=== PATIENT | male | born 1945 | race African-American/Black ===

== ENCOUNTER 2017-03-02 12:49 | Inpatient (IN) ==
[2017-03-02 14:48] LABS: Basophils % 0.3 % (0.0-0.8); Eosinophils # 0.1 10*3/uL (0.0-0.87); Eosinophils % 0.7 % (0.00-10.9); Hematocrit 48.8 VOL% (42.0-52.0); Hemoglobin 16.5 GM/DL (14.0-18.0); Immature Granulocytes % 0.3 %; Immature Granulocytes Absolute 0.02 #; Lymphocytes # 1.5 10*3/uL (1.4-4.0); Lymphocytes % 21.5 % (21.2-54.2); Mean Corpuscular HGB Conc 33.8 GM/DL (32-36); Mean Corpuscular Hemoglobin 32 PG (27-34); Mean Corpuscular Volume 93.3 FL (87-102); Mean Platelet Volume 10.7 FL (9.6-12.0); Monocytes # 0.6 10*3/uL (0.11-0.8); Monocytes % 8.4 % (1.7-12.7); Neutrophils # 4.9 10*3/uL (1.4-7.4); Neutrophils % 68.8 % (38.7-73.9); Platelet Count 166 T/CUMM (130-400); Red Blood Count 5.23 MC/CUMM (3.8-5.5); Red Cell Distribution Width 11.9 % (9.3-17.3); White Blood Count 7.1 T/CUMM (4-12)
[2017-03-02 14:56] LABS: PT Patient Result 10.8 SECS; Partial Thromboplastin Time 24.5 SECS (0-40)
[2017-03-02 15:26] LABS: Alanine Aminotransferase 45 U/L (16-61); Albumin 4.1 G/DL (3.4-5.0); Alkaline Phosphatase 85 U/L (45-117); Aspartate Amino Transferase 33 U/L (0-37); Blood Urea Nitrogen 11 MG/DL (7-18); Calcium 9.3 MG/DL (8.5-10.1); Glucose 109 MG/DL (74-106); Osmolality,Calculated 274.7 MOS/KG (273-304); Potassium 4.2 MMOL/L (3.5-5.1); Sodium 138 MMOL/L (136-145); Total Protein 7.8 G/DL (6.4-8.3)
[2017-03-02 15:27] LABS: Troponin I Only 0.217 NG/ML (0.00-0.045)
[2017-03-02] MEDS ORDERED: ENOXAPARIN 100 MG/ML SYRINGE SUBCUT STA (15:51)
[2017-03-02] MEDS ORDERED: ASPIRIN 325 MG TABLET PO STA (15:51)
[2017-03-02] MEDS ORDERED: ENOXAPARIN 100 MG/ML SYRINGE SUBCUT ONE (15:59)
[2017-03-02] MEDS ORDERED: ASPIRIN 325 MG TABLET ONE (15:59)
[2017-03-02] MEDS ORDERED: ACETAMINOPHEN 325 MG TABLET PO PRN (17:23)
[2017-03-02] MEDS ORDERED: LACTULOSE 20 GM/30 ML UDCUP PO PRN (17:23)
[2017-03-02] MEDS ORDERED: ONDANSETRON 4 MG/2 ML VIAL IV PRN (17:23)
[2017-03-02] MEDS ORDERED: DOCUSATE SODIUM 100 MG CAPSULE PO PRN (17:23)
[2017-03-02] MEDS ORDERED: MORPHINE 2 MG/1 ML SYRINGE IV PRN (17:23)
[2017-03-02 18:21] LABS: Magnesium 2.1 MG/DL (1.8-2.4); Thyroid Stimulating Hormone 2.04 uIU/ml (0.358-3.74)
[2017-03-02] MEDS: prednisoLONE ACETATE 1% OPH SUSP 5 ML BOTTLE BOTH EYES SCH (20:49)
[2017-03-02] MEDS: SODIUM CHLORIDE 0.9% 1,000 ML IV SCH (21:34)
[2017-03-02] MEDS ORDERED: NITROGLYCERIN SL 0.4 MG TABLET SL PRN (22:42)
[2017-03-03] MEDS ORDERED: ENOXAPARIN 100 MG/ML SYRINGE SUBCUT SCH (03:00)
[2017-03-03 04:02] LABS: Basophils % 0.4 % (0.0-0.8); Eosinophils # 0.1 10*3/uL (0.0-0.87); Eosinophils % 1.2 % (0.00-10.9); Hematocrit 44.2 VOL% (42.0-52.0); Hemoglobin 14.8 GM/DL (14.0-18.0); Immature Granulocytes % 0.3 %; Immature Granulocytes Absolute 0.02 #; Lymphocytes # 3.4 10*3/uL (1.4-4.0); Lymphocytes % 49.5 % (21.2-54.2); Mean Corpuscular HGB Conc 33.5 GM/DL (32-36); Mean Corpuscular Hemoglobin 31 PG (27-34); Mean Corpuscular Volume 92.7 FL (87-102); Mean Platelet Volume 10.7 FL (9.6-12.0); Monocytes # 0.6 10*3/uL (0.11-0.8); Monocytes % 9.2 % (1.7-12.7); Neutrophils # 2.7 10*3/uL (1.4-7.4); Neutrophils % 39.4 % (38.7-73.9); Platelet Count 169 T/CUMM (130-400); Red Blood Count 4.77 MC/CUMM (3.8-5.5); Red Cell Distribution Width 11.9 % (9.3-17.3); White Blood Count 6.9 T/CUMM (4-12)
[2017-03-03 04:45] LABS: Osmolality,Calculated 275.5 MOS/KG (273-304); Potassium 3.8 MMOL/L (3.5-5.1); Risk Ratio 6.48; VLDL CHOLESTEROL 30.8 MG/DL
[2017-03-03] MEDS: SODIUM CHLORIDE 0.9% 1,000 ML IV SCH (05:12)
[2017-03-03] MEDS ORDERED: CHLORTHALIDONE 25 MG TABLET PO SCH (09:00)
[2017-03-03] MEDS ORDERED: LISINOPRIL 20 MG TABLET PO SCH (09:00)
[2017-03-03] MEDS ORDERED: ROSUVASTATIN 20 MG TABLET PO ONE (09:03)
[2017-03-03] MEDS ORDERED: ZALEPLON 5 MG CAPSULE PO PRN (09:11)
[2017-03-03] MEDS ORDERED: DIAZEPAM 5 MG TABLET PO ONE (09:14)
[2017-03-03] MEDS ORDERED: MAGNESIUM SULF RIDER 2 GM in PREMIX 1 EACH IV PRN (09:14)
[2017-03-03] MEDS ORDERED: POTASSIUM CHLORIDE RIDER 10 MEQ in PREMIX 1 EACH IV PRN (09:14)
[2017-03-03] MEDS ORDERED: diphenhydrAMINE CAP 25 MG CAPSULE PO ONE (09:14)
[2017-03-03 09:58] LABS: Risk Ratio 6.45
[2017-03-03] MEDS: PANTOPRAZOLE 40 MG TABLET PO SCH (10:34)
[2017-03-03] MEDS: SPIRONOLACTONE 25 MG TABLET PO SCH (10:34)
[2017-03-03] MEDS ORDERED: ASPIRIN 325 MG TABLET PO ONE (10:35)
[2017-03-03] MEDS: prednisoLONE ACETATE 1% OPH SUSP 5 ML BOTTLE BOTH EYES SCH ×3 (10:35→21:06)
[2017-03-03] MEDS: ALLOPURINOL 100 MG TABLET PO SCH (10:35)
[2017-03-03] MEDS: ASPIRIN EC 81 MG TABLET PO SCH (10:35)
[2017-03-03] MEDS ORDERED: MEPERIDINE 25 MG/1 ML VIAL ONE (12:03)
[2017-03-03] MEDS ORDERED: LIDOCAINE 1% 20 ML VIAL ONE ×2 (12:03→12:07)
[2017-03-03] MEDS ORDERED: MIDAZOLAM 2 MG/2 ML VIAL ONE (12:03)
[2017-03-03] MEDS ORDERED: HEPARIN 5,000 UNIT/1 ML VIAL ONE (12:47)
[2017-03-03] MEDS ORDERED: EPTIFIBATIDE 20,000 MCG/10 ML VIAL ONE ×2 (12:48→13:00)
[2017-03-03] MEDS ORDERED: EPTIFIBATIDE 75 MG/100 ML BOTTLE IV ONE (12:49)
[2017-03-03] MEDS ORDERED: EPTIFIBATIDE 75 MG/100 ML BOTTLE IV SCH (12:59)
[2017-03-03] MEDS ORDERED: TICAGRELOR 90 MG TABLET ONE (13:43)
[2017-03-03 15:28] LABS: CKMB % 1.9 %
[2017-03-03 15:29] LABS: Troponin I Only 3.08 NG/ML (0.00-0.045)
[2017-03-03] MEDS: CARVEDILOL 3.125 MG TABLET PO SCH ×2 (15:58→21:06)
[2017-03-03] MEDS: BENZONATATE 100 MG CAPSULE PO SCH ×2 (16:01→21:06)
[2017-03-03] MEDS: FUROSEMIDE 20 MG TABLET PO SCH (16:04)
[2017-03-03] MEDS ORDERED: ROSUVASTATIN 20 MG TABLET PO SCH (21:00)
[2017-03-03] MEDS: TICAGRELOR 90 MG TABLET PO SCH (21:06)
[2017-03-04 00:48] LABS: CKMB % 1.4 %
[2017-03-04 00:51] LABS: Troponin I Only 1.94 NG/ML (0.00-0.045)
[2017-03-04 05:34] LABS: Basophils % 0.2 % (0.0-0.8); Eosinophils # 0.1 10*3/uL (0.0-0.87); Eosinophils % 1.2 % (0.00-10.9); Hematocrit 42.9 VOL% (42.0-52.0); Hemoglobin 14.4 GM/DL (14.0-18.0); Immature Granulocytes % 0.2 %; Immature Granulocytes Absolute 0.02 #; Lymphocytes # 2.5 10*3/uL (1.4-4.0); Lymphocytes % 31.4 % (21.2-54.2); Mean Corpuscular HGB Conc 33.6 GM/DL (32-36); Mean Corpuscular Hemoglobin 31 PG (27-34); Mean Corpuscular Volume 92.9 FL (87-102); Mean Platelet Volume 10.8 FL (9.6-12.0); Monocytes # 0.9 10*3/uL (0.11-0.8); Monocytes % 11.3 % (1.7-12.7); Neutrophils # 4.5 10*3/uL (1.4-7.4); Neutrophils % 55.7 % (38.7-73.9); Platelet Count 170 T/CUMM (130-400); Red Blood Count 4.62 MC/CUMM (3.8-5.5); Red Cell Distribution Width 12.2 % (9.3-17.3); White Blood Count 8.1 T/CUMM (4-12)
[2017-03-04 05:51] LABS: Osmolality,Calculated 280.3 MOS/KG (273-304); Potassium 3.7 MMOL/L (3.5-5.1)
[2017-03-04] MEDS ORDERED: LOSARTAN 25 MG TABLET PO SCH (09:00)
[2017-03-04] MEDS ORDERED: LISINOPRIL 2.5 MG TABLET PO SCH (09:00)
[2017-03-04] MEDS: PANTOPRAZOLE 40 MG TABLET PO SCH (09:20)
[2017-03-04] MEDS: TICAGRELOR 90 MG TABLET PO SCH (09:20)
[2017-03-04] MEDS: ALLOPURINOL 100 MG TABLET PO SCH (09:20)
[2017-03-04] MEDS: ASPIRIN EC 81 MG TABLET PO SCH (09:20)
[2017-03-04] MEDS: FUROSEMIDE 20 MG TABLET PO SCH (09:21)
[2017-03-04] MEDS: BENZONATATE 100 MG CAPSULE PO SCH (09:21)
[2017-03-04] MEDS: SPIRONOLACTONE 25 MG TABLET PO SCH (09:21)
[2017-03-04] MEDS: CARVEDILOL 3.125 MG TABLET PO SCH (09:21)
[2017-03-04] MEDS: prednisoLONE ACETATE 1% OPH SUSP 5 ML BOTTLE BOTH EYES SCH (09:21)
[2017-03-04 11:49] VITALS: BP 118/91
== END 2017-03-04 13:33 | disposition home or self-care (01) | DRG 247 ==
LOC: N.ED 12:49 → N.EDINP 12:49 → N.TELEN 19:07 → SUATTDRO 03-03 14:10
PROVIDERS: ADMIT Internal Medicine; ATTEND Hospitalist
PROC: CLCCHCL (ICD-10-PCS; 2017-03-03 12:15)

== ENCOUNTER 2020-02-01 15:49 | Inpatient (IN) ==
[2020-02-01 17:41] LABS: Basophils % 0.6 % (0.0-0.8); Eosinophils # 0.2 10*3/uL (0.0-0.87); Eosinophils % 3.2 % (0.00-10.9); Hematocrit 45.4 VOL% (42.0-52.0); Hemoglobin 14.5 GM/DL (14.0-18.0); Immature Granulocytes % 0.3 %; Immature Granulocytes Absolute 0.02 #; Lymphocytes # 2.6 10*3/uL (1.4-4.0); Mean Corpuscular HGB Conc 31.9 GM/DL (32-36); Mean Platelet Volume 9.9 FL (9.6-12.0); Monocytes % 10.8 % (1.7-12.7); Neutrophils % 47.1 % (38.7-73.9); Platelet Count 242 T/CUMM (130-400); Red Blood Count 4.73 MC/CUMM (3.8-5.5); Red Cell Distribution Width 12.4 % (9.3-17.3); White Blood Count 6.9 T/CUMM (4-12)
[2020-02-01 17:54] LABS: Albumin 3.2 G/DL (3.4-5.0); Bilirubin,Total 0.4 MG/DL (0.2-1.0); Calcium 9.5 MG/DL (8.5-10.1); Osmolality,Calculated 275.7 MOS/KG (273-304); Total Protein 7.4 G/DL (6.4-8.3)
[2020-02-01 19:09] LABS: Eosinophils 2 % (0-10); Lymphocytes 40 % (20-55); Macrocytosis 1+; Segmented Neutrophils 46 % (50-85); Total Cells Counted 100
[2020-02-01 19:11] LABS: Platelet Estimate Increased; Reactive Lymphocytes 2+
[2020-02-01] MEDS ORDERED: FUROSEMIDE 40 MG/4 ML VIAL IV STA (19:36)
[2020-02-01] MEDS ORDERED: GLUCAGON 1 MG VIAL IM PRN (20:10)
[2020-02-01] MEDS ORDERED: ACETAMINOPHEN 325 MG TABLET PO PRN (20:10)
[2020-02-01] MEDS ORDERED: DEXTROSE 50% 25 GM/50 ML VIAL IV PRN (20:10)
[2020-02-01] MEDS ORDERED: DOCUSATE SODIUM 100 MG CAPSULE PO PRN (20:10)
[2020-02-01] MEDS ORDERED: ONDANSETRON 4 MG/2 ML VIAL IV PRN (20:10)
[2020-02-01] MEDS ORDERED: carvediloL 3.125 MG TABLET PO SCH (21:30)
[2020-02-01] MEDS ORDERED: ACETYLCYSTEINE 600 MG CAPSULE PO SCH (21:30)
[2020-02-02 06:15] VITALS: BP 124/92
[2020-02-02] MEDS ORDERED: SPIRONOLACTONE 25 MG TABLET PO SCH (09:00)
[2020-02-02] MEDS ORDERED: FAMOTIDINE 20 MG TABLET PO SCH (09:00)
[2020-02-02] MEDS ORDERED: TIMOLOL 0.5% OPH SOLN 5 ML BOTTLE LEFT EYE SCH (09:00)
[2020-02-02] MEDS ORDERED: ENOXAPARIN 40 MG/0.4 ML SYRINGE SUBCUT SCH (09:00)
[2020-02-02] MEDS ORDERED: CLOPIDOGREL 75 MG TABLET PO SCH (09:00)
[2020-02-02] MEDS ORDERED: ASPIRIN EC 81 MG TABLET PO SCH (09:00)
[2020-02-02] MEDS ORDERED: amLODIPine 5 MG TABLET PO SCH (09:00)
[2020-02-02] MEDS ORDERED: FUROSEMIDE 40 MG/4 ML VIAL IV SCH (09:00)
[2020-02-02] MEDS ORDERED: LEVOFLOXACIN INJ 750 MG in PREMIX 1 EACH IV SCH (09:00)
== END 2020-02-01 22:44 | disposition left against medical advice (07) | DRG 291 ==
LOC: N.ED 15:49 → N.EDINP 19:58
PROVIDERS: ADMIT Hospitalist; ATTEND Hospitalist